=== PATIENT | female | born 1960 | race African-American/Black ===

== ENCOUNTER → 2017-09-11 | Day surgery (SDC) | payer OTHER ==
[~2017-09-11] MED LIST: ADVA500A INH; ALBU0.086 INH; AMLO5TAB22 PO; BUPIVACAINE HCL PF 0.25% 30 ML VIAL ONE; BUPIVACAINE HCL PF 0.5% 30 ML VIAL ONE; BUPIVACAINE/EPINEPHRINE 0.5% 50 ML VIAL ONE; BUPIVACAINE/EPINEPHRINE 0.5% PF 10 ML VIAL ONE; BUPIVACAINE/EPINEPHRINE 0.5% PF 30 ML VIAL ONE; CLINDAMYCIN PHOS 900 MG/6 ML VIAL ONE; ISOSULFAN BLUE 50 MG/5 ML VIAL SQ ONE; LACTATED RINGER'S 1000 ML INJ 1,000 ML ONE; LORA10TA PO; LORTA5 PO; MIDAZOLAM HCL 2 MG/2 ML VIAL ONE; MONT10TA2 PO; MORPHINE SULFATE 4 MG/ML INJ ONE; NS 100 ML (PAB BAG) 100 ML IV ONE; ONDANSETRON HCL 4 MG/2 ML VIAL IV PUSH ONE; PROPOFOL 200 MG/20 ML AMP IV ONE; RESP: ALBUTEROL 2.5 MG/3 ML NEB (SCH) ONE; SODIUM CHLOR 0.9% 1000 ML INJ 1,000 ML IV ONE; SODIUM CHLORIDE 0.9% INJ 0 ML ONE; TYLE500T PO; oxyCODONE/ACETAMINOPHEN 5 MG/325 MG TAB ONE
--- NOTE | 2017-09-11 13:42 | TN ---
cc: JENNA MENDEZ DATE OF SURGERY: 09/11/2017 PREOPERATIVE DIAGNOSIS Bilateral breast cancer. POSTOPERATIVE DIAGNOSIS Bilateral breast cancer. PROCEDURE PERFORMED Bilateral mastectomy and bilateral axillary lymph node dissection. SURGEON Jenna Jones. ANESTHESIA General via LMA device. 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 She completed neoadjuvant chemotherapy and lumpectomy and sentinel lymph node biopsy. She also completed whole-breast radiation on the left side. She presented approximately two months ago with pain in the left lateral chest wall and work-up demonstrated bilateral axillary metastases with a questionable new mass by PET scan in the right breast. The patient has opted for bilateral modified radical mastectomy and now presents for the procedure. FINDINGS At the time of surgery gross adenopathy was identified on the right side. There were some suspicious lymph nodes on the left sided at level II and in the area of the axillary vein. PROCEDURE After informed consent was obtained and site verification was performed, the patient was brought to the major operating room where she underwent general anesthesia via an LMA device. Both breasts and the left arm as well as the right arm to the elbow were then prepped and draped in sterile fashion. The patient was given a single dose of IV clindamycin due to penicillin allergy and sequential compression hose were placed. 250 cc of tumescent solution mixed with 30 cc of Marcaine with epinephrine were then infiltrated circumferentially around the left breast in the plane between the subcutaneous fat and anterior breast fascia. Sharp dissection was then performed in this same plane superiorly to the clavicle, medially to the parasternal area, inferiorly to the anterior rectus sheath, and laterally to the axilla. Electrocautery was used to dissect the breast off the pectoralis muscle and it was oriented with the skin anterior, one short suture superiorly, and one long suture laterally. The specimen was then delivered off the field and the clavipectoral fascia was divided. There was moderate scarring in the left axilla from prior sentinel node biopsy but palpable adenopathy was identified in the area of the axillary vein and beneath the pectoralis minor muscle. This adenopathy was circumferentially dissected free from surrounding structures using the Harmonic scalpel and sent as permanent axillary specimens. Some level I axillary tissue was also dissected free from the thoracodorsal and long thoracic neurovascular bundles which remained intact throughout the dissection. The intercostal brachial nerve was also identified and remained intact throughout the dissection. The axillary tissue was sent separately as a permanent specimen and hemostasis was easily obtained with electrocautery. A stab wound was created and a 10 Burmese round drain was placed along the chest wall and secured to the skin with a 3-0 nylon suture. The wound was then closed using interrupted 3-0 Vicryl subcutaneous sutures and a 4-0 Monocryl subcuticular suture. Attention was then turned to the right breast where an elliptical incision was marked and the skin and tissue between the subcutaneous fat and anterior breast fascia was anesthetized using tumescent and 0.5% Marcaine with epinephrine circumferentially around the breast. Sharp dissection was again performed in the same plane superiorly to the clavicle, medially to the parasternal area, inferiorly to the anterior rectus sheath and laterally to the axilla. The right subclavian port was identified and remained intact in the subcutaneous tissue above the level of the dissection. Electrocautery was used to dissect the breast tissue off the pectoralis muscle and it was amputated in the axilla. The specimen was oriented with the skin anterior, one short suture inferiorly, and one long suture medially. This was sent for permanent pathologic evaluation and hemostasis was easily obtained with electrocautery. A stab wound was created and a drain was placed along the chest wall and secured to the skin with a 3-0 nylon suture. The wound was closed using interrupted 3-0 Vicryl subcutaneous sutures and a 4-0 Monocryl subcuticular suture. Steri-Strips and sterile dressings were applied. The patient tolerated the procedure well with an estimated blood loss of 350 cc and she was extubated in the operating room and brought to the recovery room in good condition. All sponge and needle counts were correct at the conclusion of the case. ADDENDUM Following mastectomy on the right side, the right clavipectoral fascia was divided using electrocautery. There was a very large low level I right axillary lymph node the size of an egg which was circumferentially dissected free from surrounding structures using the harmonic scalpel. Adjacent adenopathy was also circumferentially dissected free from surrounding structures using the harmonic scalpel. The level I axilla was identified and the intercostal brachial, thoracodorsal, and long thoracic neurovascular bundles were identified and remained intact. Some overlying axillary tissue was circumferentially dissected free from surrounding structures using the harmonic scalpel and this was all sent as a permanent right axillary specimen. Good hemostasis was noted and the wound was closed as described above. MD MILKA Massey/XU /12:55 PM /2:33 PM
== END | disposition home or self-care (01) ==
LOC: ESDC 07:15
PROVIDERS: ATTEND Surgery
DX: C50.911 Malignant neoplasm of unspecified site of right female breast (principal); C50.912 Malignant neoplasm of unspecified site of left female breast
CPT/HCPCS: 00404; 19307; 88309; J2250; J2270; J2405; J3010; J7030; J7120; J7613; 88307; Q9968

== ENCOUNTER 2018-02-23 14:07 | Observation (INO) | payer OTHER ==
[2018-02-23] VITALS (9 sets, daily range): BP systolic 158–183; BP diastolic 80–87; PULSE 80–116; RESP 14–18; TEMP 97.1–98.7; O2SAT 89–98
[~2018-02-23] VITALS: Ht 162.6 cm; Wt 80.0 kg
[~2018-02-23 14:07] MED LIST changes: -BUPIVACAINE HCL PF 0.25% 30 ML VIAL ONE; -BUPIVACAINE HCL PF 0.5% 30 ML VIAL ONE; -BUPIVACAINE/EPINEPHRINE 0.5% 50 ML VIAL ONE; -BUPIVACAINE/EPINEPHRINE 0.5% PF 10 ML VIAL ONE; -BUPIVACAINE/EPINEPHRINE 0.5% PF 30 ML VIAL ONE; -CLINDAMYCIN PHOS 900 MG/6 ML VIAL ONE; -ISOSULFAN BLUE 50 MG/5 ML VIAL SQ ONE; -LACTATED RINGER'S 1000 ML INJ 1,000 ML ONE; -MIDAZOLAM HCL 2 MG/2 ML VIAL ONE; -MORPHINE SULFATE 4 MG/ML INJ ONE; -NS 100 ML (PAB BAG) 100 ML IV ONE; -ONDANSETRON HCL 4 MG/2 ML VIAL IV PUSH ONE; -PROPOFOL 200 MG/20 ML AMP IV ONE; -RESP: ALBUTEROL 2.5 MG/3 ML NEB (SCH) ONE; -SODIUM CHLOR 0.9% 1000 ML INJ 1,000 ML IV ONE; -SODIUM CHLORIDE 0.9% INJ 0 ML ONE; -oxyCODONE/ACETAMINOPHEN 5 MG/325 MG TAB ONE
[2018-02-23] MEDS ORDERED: SODIUM CHLORIDE 0.9% FLUSH 10 ML FLUSH IVF PRN (14:30)
[2018-02-23 15:15] LABS: AUTOMATED NEUTROPHIL # 5.6 TH/MM3 (1.8-7.7); BASOPHIL # 0.1 TH/MM3 (0-0.2); BASOPHIL % 0.8 % (0.0-2.0); EOSINOPHIL # 0.4 TH/MM3 (0-0.4); EOSINOPHIL % 4.8 % (0.0-4.0); HEMATOCRIT 39.8 % (35.0-46.0); HEMOGLOBIN 12.8 GM/DL (11.6-15.3); LYMPH % 24.7 % (9.0-44.0); LYMPHOCYTE # 2.2 TH/MM3 (1.0-4.8); MEAN CELL VOLUME 88.2 FL (80.0-100.0); MEAN CORPUSCULAR HEMOGLOBIN 28.3 PG (27.0-34.0); MEAN CORPUSCULAR HGB CONC 32.1 % (32.0-36.0); MEAN PLATELET VOLUME 8.3 FL (7.0-11.0); MONO % 5.5 % (0.0-8.0); MONOCYTE # 0.5 TH/MM3 (0-0.9); NEUT % 64.2 % (16.0-70.0); PLATELET COUNT 285 TH/MM3 (150-450); RED BLOOD COUNT 4.51 MIL/MM3 (4.00-5.30); WHITE BLOOD COUNT 8.8 TH/MM3 (4.0-11.0)
[2018-02-23 15:35] LABS: BICARBONATE 31.1 MEQ/L (21.0-32.0); CALCIUM 9.6 MG/DL (8.5-10.1); CREATININE 0.67 MG/DL (0.50-1.00)
[2018-02-23] MEDS ORDERED: ACETAMINOPHEN 325 MG TAB PO ONE (15:45)
[2018-02-23 16:18] LABS: PROTHROMBIN TIME - PATIENT 10.1 SEC (9.8-11.6)
[2018-02-23] MEDS ORDERED: IOHEXOL 350 MG/ML 10 ML VIAL (for RAD DIAG) IVCONTRAST ONE (16:20)
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
[2018-02-23 17:42] LABS: BILIRUBIN, URINE NEG (NEG); BLOOD, URINE NEG (NEG); GLUCOSE,URINE NEG (NEG); KETONE, URINE NEG (NEG); MUCUS URINE FEW /lpf (OCC); NITRITE,URINE NEG (NEG); URINE COLOR LIGHT-YELLOW (YELLW/STRAW); URINE LEUKOCYTE ESTERASE NEG (NEG)
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
[2018-02-23] MEDS ORDERED: SODIUM CHLORIDE 0.9% FLUSH 10 ML FLUSH IV FLUSH PRN (19:30)
[2018-02-23] MEDS ORDERED: METOCLOPRAMIDE HCL 10 MG/2 ML VIAL IV PUSH PRN (19:30)
[2018-02-23] MEDS ORDERED: BISACODYL 10 MG SUPP RECTAL PRN (19:30)
[2018-02-23] MEDS ORDERED: SENNOSIDES 8.6 MG TAB PO PRN (19:30)
[2018-02-23] MEDS ORDERED: LACTULOSE SYRUP 20 GM/30 ML CUP PO PRN (19:30)
[2018-02-23] MEDS ORDERED: ACETAMINOPHEN 325 MG TAB PO PRN (19:30)
[2018-02-23] MEDS ORDERED: MAGNESIUM HYDROXIDE SUSP 30 ML CUP PO PRN (19:30)
[2018-02-23] MEDS ORDERED: ACETAMINOPHEN/HYDROcodone 325 MG/5 MG TAB PO PRN (19:45)
[2018-02-23] MEDS: SODIUM CHLORIDE 0.9% FLUSH 10 ML FLUSH IV FLUSH SCH (20:53)
[2018-02-23] MEDS: SODIUM CHLOR 0.9% 1000 ML INJ 1,000 ML IV SCH (20:53)
[2018-02-23] MEDS: DOCUSATE SODIUM 50 MG/SENNA 8.6 MG TAB PO SCH (20:54)
[2018-02-23] MEDS: ACETAMINOPHEN/HYDROcodone 325 MG/10 MG TAB PO PRN (22:24)
[2018-02-23] MEDS: RESP: ALBUTEROL 2.5 MG/3 ML NEB (PRN) NEB (23:55)
[2018-02-24] VITALS (12 sets, daily range): BP systolic 134–177; BP diastolic 67–84; PULSE 65–113; RESP 16–20; TEMP 97.8–98.2; O2SAT 92–99
[2018-02-24] MEDS: SODIUM CHLOR 0.9% 1000 ML INJ 1,000 ML IV SCH ×2 (05:24→06:02)
[2018-02-24] MEDS: ACETAMINOPHEN/HYDROcodone 325 MG/10 MG TAB PO PRN ×2 (06:03→11:46)
[2018-02-24 06:57] LABS: AUTOMATED NEUTROPHIL # 4.1 TH/MM3 (1.8-7.7); BASOPHIL # 0.1 TH/MM3 (0-0.2); BASOPHIL % 1.1 % (0.0-2.0); EOSINOPHIL # 0.5 TH/MM3 (0-0.4); EOSINOPHIL % 6.4 % (0.0-4.0); HEMATOCRIT 36.2 % (35.0-46.0); HEMOGLOBIN 11.6 GM/DL (11.6-15.3); LYMPH % 32.1 % (9.0-44.0); LYMPHOCYTE # 2.4 TH/MM3 (1.0-4.8); MEAN CELL VOLUME 88.6 FL (80.0-100.0); MEAN CORPUSCULAR HEMOGLOBIN 28.5 PG (27.0-34.0); MEAN CORPUSCULAR HGB CONC 32.2 % (32.0-36.0); MEAN PLATELET VOLUME 8.3 FL (7.0-11.0); MONO % 5.9 % (0.0-8.0); MONOCYTE # 0.4 TH/MM3 (0-0.9); NEUT % 54.5 % (16.0-70.0); PLATELET COUNT 270 TH/MM3 (150-450); RED BLOOD COUNT 4.09 MIL/MM3 (4.00-5.30); WHITE BLOOD COUNT 7.6 TH/MM3 (4.0-11.0)
[2018-02-24 07:11] LABS: ALBUMIN 3.1 GM/DL (3.4-5.0); AST (GOT) 12 U/L (15-37); BLOOD UREA NITROGEN 14 MG/DL (7-18); CALCIUM 9.3 MG/DL (8.5-10.1); CHLORIDE 106 MEQ/L (98-107); CREATININE 0.61 MG/DL (0.50-1.00); GLOMERULAR FILTRATION RATE 122 ML/MIN (>89); GLUCOSE,RANDOM 106 MG/DL (74-106); SODIUM (NA) 142 MEQ/L (136-145)
[2018-02-24 07:12] LABS: ALT (GPT) 16 U/L (10-53)
[2018-02-24 07:14] LABS: ALKALINE PHOSPHATASE 99 U/L (45-117); TOTAL BILIRUBIN ADULT 0.4 MG/DL (0.2-1.0); TOTAL PROTEIN 7.2 GM/DL (6.4-8.2)
[2018-02-24] MEDS: DOCUSATE SODIUM 50 MG/SENNA 8.6 MG TAB PO SCH ×2 (09:01→21:00)
[2018-02-24] MEDS: SODIUM CHLORIDE 0.9% FLUSH 10 ML FLUSH IV FLUSH SCH ×2 (09:01→21:00)
--- NOTE | 2018-02-24 10:05 | RADRPT ---
EXAM DATE/TIME: 02/24/2018 09:49 [place] COMPARISON: CT BRAIN W/O CONTRAST, February 23, 2018, 15:50. INDICATIONS : Follow up for head trauma yesterday. RADIATION DOSE: 36.25 CTDIvol (mGy) MEDICAL HISTORY : Carcinoma, breast. Hypertension. SURGICAL HISTORY : None. ENCOUNTER: Subsequent ACUITY: 2 days PAIN SCALE: 6/10 LOCATION: cranial TECHNIQUE: Multiple contiguous axial images were obtained of the head. Using automated exposure control and adj ustment of the mA and/or kV according to patient size, radiation dose was kept as low as reasonably a chievable to obtain optimal diagnostic quality images. DICOM format image data is available electro nically for review and comparison. FINDINGS: The ventricles are symmetric and normal in appearance. No abnormal extra-axial fluid collections are identified. There is no evidence of intracranial hemorrhage or mass. There is nothing to suggest acut e infarction or acute injury. The sinuses are extensively opacified. CONCLUSION: No acute intracranial injury Toni Carson MD on February 24, 2018 at 9:58 Board Certified Radiologist. This report was verified electronically.
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
[2018-02-24] MEDS ORDERED: HYDR-3583 PO (11:05)
[2018-02-24] MEDS ORDERED: PRED20 PO (11:05)
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
[2018-02-24] MEDS: predniSONE 20 MG TAB PO SCH (11:46)
[2018-02-24] MEDS: RESP: ALBUTEROL 2.5 MG/3 ML NEB (PRN) NEB (15:04)
[2018-02-25] VITALS (10 sets, daily range): BP systolic 159–190; BP diastolic 78–94; PULSE 60–116; RESP 16–24; TEMP 98.2–98.8; O2SAT 90–97
[2018-02-25] MEDS: SODIUM CHLORIDE 0.9% FLUSH 10 ML FLUSH IV FLUSH SCH (09:00)
[2018-02-25] MEDS ORDERED: BUDESONIDE-FORMOTEROL 160/4.5 MCG INHALER INH SCH (09:15)
[2018-02-25] MEDS ORDERED: MONTELUKAST SODIUM 10 MG TAB PO SCH (09:15)
[2018-02-25] MEDS ORDERED: amLODIPine BESYLATE 5 MG TAB PO SCH (09:15)
[2018-02-25] MEDS ORDERED: cloNIDine HCL 0.1 MG TAB PO PRN (09:15)
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
[2018-02-25] MEDS ORDERED: MONT10TA4 PO (09:20)
[2018-02-25] MEDS ORDERED: AMLO5 PO (09:20)
[2018-02-25] MEDS ORDERED: ADVA500A INH (09:20)
[2018-02-25] MEDS: predniSONE 20 MG TAB PO SCH (09:47)
[2018-02-25] MEDS: DOCUSATE SODIUM 50 MG/SENNA 8.6 MG TAB PO SCH (09:47)
[2018-02-25] MEDS: ACETAMINOPHEN/HYDROcodone 325 MG/10 MG TAB PO PRN (09:47)
== END 2018-02-25 19:02 | disposition home or self-care (01) ==
LOC: NEPC 14:07 → NEDA 19:16 → NEPFCDU 20:22
PROVIDERS: ADMIT Internal Medicine; ATTEND Internal Medicine
DX: S06.0X9A Concussion with loss of consciousness of unspecified duration, initial encounter (principal); I10 Essential (primary) hypertension; J45.901 Unspecified asthma with (acute) exacerbation; E11.9 Type 2 diabetes mellitus without complications; R47.01 Aphasia; R51 Headache; Z79.899 Other long term (current) drug therapy; M47.892 Other spondylosis, cervical region; M50.222 Other cervical disc displacement at C5-C6 level; M17.12 Unilateral primary osteoarthritis, left knee; Z85.3 Personal history of malignant neoplasm of breast; Z91.14 Patient's other noncompliance with medication regimen; V89.2XXA Person injured in unspecified motor-vehicle accident, traffic, initial encounter
CPT/HCPCS: 70450; 71260; 72125; 74177; 80048; 80053; 80307; 81001; 82140; 85025; 85610; 85730; 86850; 86900; 86901; 94618; 94640; 94664; 96125; 97127; 97161; 97530; 99285; G0378; G8987; G8988; G9168; G9169; G9170; J7030; J7512; J7613; Q9967